=== PATIENT | male | born 1955 | race Caucasian/White ===

== ENCOUNTER 2016-10-28 07:21 | Outpatient (CLI) | payer OTHER | END 2016-10-28 07:22 | disposition home or self-care (01) | DX: R51 Headache (principal) ==

== ENCOUNTER 2017-03-10 14:05 | Outpatient (CLI) | payer OTHER ==
--- NOTE | 2017-03-11 08:22 | XRAY Report ---
AP, LATERAL, AND ODONTOID CERVICAL SPINE, THREE VIEWS: 03/10/2017 CLINICAL HISTORY: Pain in the neck. FINDINGS: Mild vascular calcification is noted at each carotid artery bifurcation, left greater than right. These findings represent atherosclerosis. Reversal of normal lordotic curve of the C-spine is seen at the C4-5, C5-6, and C6-7 levels. Mild anterior spurring is noted in the C-spine at C4, C5 , C6, and C7. Moderate degree of disk space narrowing is noted at C6-7. [id number] disk space narrowing is noted at C5-6. Two millimeters of spondylolisthesis is seen of C3 in relationship to C 4. This most likely is a result of muscle spasm. Mild spurring is noted at the uncinate process of C5 and C6. C-spine is seen down to C7-T1 level on the lateral view. Odontoid appears normal. Mild narrowing is noted between the odontoid process of the anterior arch o f C1. IMPRESSION: 1. OSTEOARTHRITIS IS NOTED OF THE C-SPINE IN ASSOCIATION WITH DEGENERATIVE DISK DISEASE. MOST PRONO UNCED CHANGES ARE NOTED AT C5-6 AND C6-7. 2. REVERSAL OF NORMAL LORDOTIC CURVE OF THE C-SPINE IS NOTED. THIS MOST LIKELY IS A RESULT OF MUSCL E SPASM. MINIMAL SPONDYLOLISTHESIS IS NOTED OF C4 IN RELATIONSHIP TO C5. THIS MOST LIKELY IS A RESU LT OF MUSCLE SPASM. JOB #: [id number] EXT JOB #:[id number]
== END 2017-03-10 14:06 | disposition home or self-care (01) ==
LOC: DI 14:05
PROVIDERS: ATTEND Physician Assistant
DX: M47.892 Other spondylosis, cervical region (principal); M50.30 Other cervical disc degeneration, unspecified cervical region; M43.12 Spondylolisthesis, cervical region
CPT/HCPCS: 72040

== ENCOUNTER 2018-05-25 11:39 | Outpatient (CLI) | payer OTHER | END 2018-05-25 11:40 | disposition home or self-care (01) | LOC: SC 11:39 | PROVIDERS: ATTEND Internal Medicine Pulmonary Disease | DX: G47.30 Sleep apnea, unspecified (principal); G47.10 Hypersomnia, unspecified; R06.83 Snoring; G47.8 Other sleep disorders | CPT/HCPCS: 99203; 99212 ==

== ENCOUNTER 2018-08-02 22:58 | Emergency (ER) | payer OTHER ==
[2018-08-02] MEDS ORDERED: LORazepam 2 MG/ML VIAL IVP STA (23:44)
[2018-08-02] MEDS ORDERED: SODIUM CHLORIDE 0.9% 1,000 ML IV ONE (23:44)
[2018-08-02 23:51] LABS: BILIRUBIN,URINE NEGATIVE (NEGATIVE); GLUCOSE, URINE (UA) NEGATIVE (NEGATIVE); KETONES,URINE (UA) NEGATIVE (NEGATIVE); LEUKOCYTE ESTERASE, URINE NEGATIVE (NEGATIVE); NITRITE,URINE NEGATIVE (NEGATIVE); OCCULT BLOOD,URINE NEGATIVE (NEGATIVE); PROTEIN,URINE NEGATIVE (NEGATIVE); UROBILINOGEN,URINE 0.2 (NORMAL) E.U./dL (NORMAL)
[2018-08-02 23:53] LABS: CLARITY,URINE CLEAR (CLEAR)
[2018-08-03 00:05] LABS: BASOPHILS % (AUTO) 0.6 %; EOSINOPHILS # (AUTO) 0.1 10^3/uL (0.0-0.7); EOSINOPHILS % (AUTO) 1.6 %; HGB - HEMOGLOBIN 15.5 g/dL (14.0-18.0); LYMPHOCYTES # (AUTO) 2.9 10^3/uL (1.5-3.5); MEAN CORPUSCULAR HEMOGLOBIN 30.1 pg (27.0-31.0); MEAN CORPUSCULAR HGB CONC 33.3 g/dL (32.0-36.0); MEAN CORPUSCULAR VOLUME 90.2 fL (80.0-94.0); MONOCYTES # (AUTO) 0.7 10^3/uL (0.0-1.0); MONOCYTES % (AUTO) 8.9 %; NEUTROPHILS % (AUTO) 51.9 %; PLT - PLATELET COUNT 228 10^3/uL (130-450); RED BLOOD COUNT 5.17 10^6/uL (4.70-6.10); RED CELL DISTRIBUTION WIDTH 13.2 % (12.0-15.0); WHITE BLOOD COUNT 7.8 x10^3/uL (4.8-10.8)
[2018-08-03 00:14] LABS: ALBUMIN 4.3 g/dL (3.2-5.5); ALBUMIN/GLOBULIN RATIO 1.5 (1.0-2.2); ALKALINE PHOSPHATASE 48 IU/L (42-121); ALT ALANINE AMINOTRANSFERASE 27 IU/L (10-60); AST ASPARTATE AMINOTRANSFERASE 33 IU/L (10-42); BILIRUBIN,TOTAL 0.5 mg/dL (0.2-1.0); BUN - BLOOD UREA NITROGEN 15 mg/dL (6-20); CALCIUM 9.1 mg/dL (8.5-10.3); CARBON DIOXIDE - CO2 26 mmol/L (21-32); CHLORIDE 103 mmol/L (101-111); CREATININE 1.1 mg/dL (0.6-1.2); GFR - MDRD 68 (>89); GLUCOSE 102 mg/dL (70-100); LIPASE 65 U/L (22-51); SODIUM 140 mmol/L (135-145); TOTAL PROTEIN 7.2 g/dL (6.7-8.2)
--- NOTE | 2018-08-03 01:29 | ED Physician Documentation ---
History of Present Illness - Stated complaint Stated Complaint: HBP - Chief complaint Chief Complaint: General - History obtained from History obtained from: Patient - History of Present Illness Timing: Today - Additonal information Additional information: The patient is a 63-year-old male with history of chronic back pain and anxiety disorder, who ran out of oxycodone and lorazepam 3 days ago. He presents now complaining of withdrawal symptoms stating he is "feeling like crap." He reports high blood pressure up to 165/100, palpitations, increased back pain and anxiety. He ran out of oxycodone and lorazepam because of taking more than the prescribed amount. He has been referred to pain management clinic, where he will be evaluated this week. He has an appointment for MRI of his lumbar spine tomorrow. He denies fever, nausea or vomiting. Earlier he had diarrhea, but that has since resolved. Review of Systems Constitutional: reports: Myalgias. denies: Fever Ears: denies: Tinnitus/ringing Nose: denies: Congestion Throat: denies: Sore throat Cardiac: reports: Palpitations. denies: Chest pain / pressure Respiratory: denies: Dyspnea, Cough GI: denies: Abdominal Pain, Nausea, Vomiting : denies: Dysuria Skin: denies: Rash Musculoskeletal: reports: Back pain (chronically) Neurologic: reports: Headache (mild). denies: Focal weakness, Numbness PD PAST MEDICAL HISTORY - Past Medical History Cardiovascular: Hypertension Psych: Depression Musculoskeletal: Chronic back pain - Past Surgical History General: Appendectomy - Present Medications Home Medications: Ambulatory Orders Medication Instructions Recorded Confirmed Gabapentin [Neurontin] 400 mg PO BID 11/05/13 06/07/16 Lisinopril 5 mg PO DAILY 11/05/13 06/07/16 Prazosin HCl [Minipress] 2 mg PO DAILY 11/05/13 06/07/16 Sildenafil Citrate [Viagra] 100 mg PO PRN 11/05/13 11/05/13 buPROPion [Wellbutrin Sr] 100 mg PO BID 11/05/13 06/07/16 Oxycodone HCl/Acetaminophen 1 - 2 each PO Q6H PRN #14 tablet 06/07/16 [Percocet 5-325 mg Tablet] LORazepam [Lorazepam] 1 mg PO Q6HR PRN #12 tablet 08/03/18 - Allergies Allergies/Adverse Reactions: Allergies Allergy/AdvReac Type Severity Reaction Status Date / Time No Known Drug Allergies Allergy Verified 11/05/13 12:13 - Social History Does the pt smoke?: No Smoking Status: Never smoker Does the pt drink ETOH?: Yes Does the pt have substance abuse?: No - Immunizations Immunizations are current?: Yes PD ED PE NORMAL - Vitals Vital signs reviewed: Yes (hypertensive) - General General: Alert and oriented X 3, Well developed/nourished - HEENT HEENT: Atraumatic, EOMI, Moist mucous membranes, Pharynx benign - Neck Neck: Supple, no meningeal sign, No adenopathy, No JVD - Cardiac Cardiac: RRR, No murmur - Respiratory Respiratory: No respiratory distress, Clear bilaterally - Abdomen Abdomen: Soft, Non tender - Back Back: No CVA TTP, Other (Tenderness to palpation in the lower lumbar region, without or, erythema, or focal tenderness to palpation.) - Derm Derm: No rash - Extremities Extremities: No edema, No calf tenderness / cord, Other (Straight leg raise test is negative bilaterally.) - Neuro Neuro: Alert and oriented X 3, No motor deficit, No sensory deficit Results - Vitals Vitals: Oxygen O2 Source Room air - Labs Labs: Laboratory Tests 08/02/18 08/02/18 08/02/18 23:36 23:58 23:58 WBC 7.8 RBC 5.17 Hgb 15.5 Hct 46.6 MCV 90.2 MCH 30.1 MCHC 33.3 RDW 13.2 Plt Count 228 MPV 8.0 Neut # (Auto) 4.0 Lymph # (Auto) 2.9 [place] # (Auto) 0.7 Eos # (Auto) 0.1 Baso # (Auto) 0.0 Absolute Nucleated RBC 0.00 Nucleated RBC % 0.0 Sodium 140 Potassium 3.7 Chloride 103 Carbon Dioxide 26 Anion Gap 11.0 BUN 15 Creatinine 1.1 Estimated GFR (MDRD) 68 L Glucose 102 H Calcium 9.1 Total Bilirubin 0.5 AST 33 ALT 27 Alkaline Phosphatase 48 Total Protein 7.2 Albumin 4.3 Globulin 2.9 Albumin/Globulin Ratio 1.5 Lipase 65 H Urine Color YELLOW Urine Clarity CLEAR Urine pH 7.0 Ur Specific [place] <=1.005 Urine Protein NEGATIVE Urine Glucose (UA) NEGATIVE Urine Ketones NEGATIVE Urine Occult Blood NEGATIVE Urine Nitrite NEGATIVE Urine Bilirubin NEGATIVE Urine Urobilinogen 0.2 (NORMAL) Ur Leukocyte Esterase NEGATIVE Ur Microscopic Review NOT INDICATED Urine Culture Comments NOT INDICATED Ethyl Alcohol < 5.0 PD MEDICAL DECISION MAKING - ED course Complexity details: reviewed results, re-evaluated patient, considered differential, d/w patient ED course: The patient's presentation is most consistent with benzodiazepine and narcotic withdrawal. He has experienced recent exacerbation of chronic back pain, and because of taking his medication above the prescribed amount, has run out of lorazepam and oxycodone. His physical exam does not suggest epidural abscess, or cauda equina syndrome. Treatment in the emergency department included administration of normal saline 1 L IV and lorazepam 1 mg IV. His symptoms improved with the above treatment. He is being discharged with prescription for lorazepam, 12 tablets. I declined to prescribe narcotic medication for him, stating that he would need to contact his primary physician. I discussed with him potentially worrisome signs or symptoms that should prompt reevaluation in the emergency department. Departure - Departure Disposition: 01 Home, Self Care Clinical Impression: Withdrawal from opioids Withdrawal from benzodiazepine Qualifiers: Complication of substance-induced condition: uncomplicated Qualified Code(s): F13.230 - Sedative, hypnotic or anxiolytic dependence with withdrawal, uncomplicated Condition: Stable Instructions: ED Withdrawal Narcotic, ED Withdrawal Benzodiazepine Follow-Up: Jes Brenner PA [Primary Care Provider] - Prescriptions: LORazepam [Lorazepam] 1 mg PO Q6HR PRN #12 tablet PRN Reason: Anxiety Comments: You can use lorazepam as prescribed if needed for withdrawal symptoms. Follow-up for the MRI tomorrow as scheduled. Follow-up with pain management clinic as scheduled. Follow-up with your primary physician. Call to schedule appointment. Return to the emergency department if you develop increasing withdrawal symptoms, persistent vomiting, or otherwise worsening symptoms. Discharge Date/Time: 08/03/18 01:52
[2018-08-03 01:47] VITALS: BP 145/85
== END 2018-08-03 01:52 | disposition home or self-care (01) ==
LOC: ED 22:58
DX: F13.230 Sedative, hypnotic or anxiolytic dependence with withdrawal, uncomplicated (principal); I10 Essential (primary) hypertension; G89.29 Other chronic pain
CPT/HCPCS: 36415; 80053; 80320; 81003; 83690; 85025; 96361; 96374; 99283; J2060; 81001; 87086